=== PATIENT | male | born 1965 | race Caucasian/White ===

== ENCOUNTER → 2017-02-13 12:50 | Outpatient (CLI) | payer MEDICAID ==
[2015-12-11 16:14] VITALS: BMI 24.2
[~2017-02-13 12:50] MED LIST: BUSPAR10 MG PO; CELEXA20 MG PO; DILAUDID2 MG PO; FLOMAX0.4 MG PO; HYDROCODON-ACE1 EAC7 PO; LOVASTATIN10 MG PO; MIRALAX17 GM PO; PEPCID40 MG PO; PREVACID30 MG PO; TRAZODONE HCL50 MG PO
[2017-03-11 07:56] VITALS: BMI 27.1
== END | disposition home or self-care (01) ==
LOC: D.CN 11:00 → D.MRI 12:50
DX: G44.029 Chronic cluster headache, not intractable (principal); S06.0X0D Concussion without loss of consciousness, subsequent encounter; X58.XXXD Exposure to other specified factors, subsequent encounter; F10.10 Alcohol abuse, uncomplicated

== ENCOUNTER → 2017-02-25 09:40 | Outpatient (CLI) | payer MEDICAID ==
[2015-12-11 16:14] VITALS: BMI 24.2
--- NOTE | 2017-03-02 06:53 | EEG ---
PATIENT:ADIN CHONG DATE OF SERVICE: 02/25/17 MEDICAL RECORD: [id number] DATE OF : 69 LOCATION: [facility] ADMISSION DATE: 02/25/17 REFERRING PHYSICIAN: INTERPRETING PHYSICIAN: ALEXYS BONE MD DATE OF SERVICE: 02/25/2017 Referred by Alexys Bone MD as an outpatient. ELECTROENCEPHALOGRAM NUMBER: [id number]. DATE OF EXAMINATION: 02/25/2017 at 10:40 a.m. TECHNICAL DATA: This electroencephalographic recording consisted of approximately 20 minutes of data collection utilizing the international 10/20 system of electrode placement and both referential and non-referential montages. Sixteen channels of electrocerebral recording are accompanied by a 17th channel dedicated to the electrocardiographic rhythm and 2 channels of electromyographic recording. Recording is performed in the awake and drowsy states utilizing activation by hyperventilation and photic stimulation. ELECTROENCEPHALOGRAPHIC DATA: The awake state comprises approximately 70% of the recorded electrocerebral activity. Electromyographic artifact is prominent and rapid eye movements are seen. The posterior dominant background consists of a well-developed, symmetric, semi-rhythmic, waxing and waning alpha activity of 9-10 Hz, which is suppressed by eye opening. The drowsy state comprises the remaining portion of the recorded electrocerebral activity. Electromyographic artifact is moderately diminished. Rapid eye movements are not seen. The posterior dominant background is at times relatively suppressed. No abnormal or focal slowing is identified. No epileptiform discharges are seen. Hyperventilation and photic stimulation induced no abnormal change in the recorded electrocerebral activity. INTERPRETATION: Normal (awake and drowsy). This is a normal electroencephalographic recording. TRANSINT:[id number] Voice Confirmation ID: [id number] DOCUMENT ID: [id number] ALEXYS BONE MD at 0653 CC: [id number] DICTATION DATE: 02/26/17 0828 QA ANALYST: 02/26/17 1216 DEP CLI 02/25/17 [place] [id number]
[2017-03-11 07:56] VITALS: BMI 27.1
== END | disposition home or self-care (01) ==
LOC: D.CN 02-13 11:00
DX: G44.029 Chronic cluster headache, not intractable (principal); S06.0X0D Concussion without loss of consciousness, subsequent encounter; F10.10 Alcohol abuse, uncomplicated

== ENCOUNTER 2017-03-11 07:17 | Day surgery (SDC) | payer MEDICAID ==
[~2017-03-11] VITALS: Ht 167.6 cm; Wt 76.2 kg
[~2017-03-11 07:17] MED LIST changes: -HYDROCODON-ACE1 EAC7 PO; -MIRALAX17 GM PO
[2017-03-11 07:56] VITALS: BP 120/75; Ht 167.6 cm; Wt 76.2 kg
[2017-03-11] MEDS ORDERED: MIRALAX17 GM PO (10:36)
[2017-03-11] MEDS ORDERED: HYDROCODON-ACE1 EAC7 PO (10:36)
--- NOTE | 2017-03-11 12:56 | OP ---
PATIENT NAME: ADIN CHONG MEDICAL RECORD: [id number] :69 LOCATION:.[facility] ADMISSION DATE: SURGEON: FLORENCE ZAVALA MD DATE OF OPERATION: 03/11/2017 PREOPERATIVE DIAGNOSES: 1. Bleeding hemorrhoids. 2. Nicotine dependence. 3. Chronic obstructive pulmonary disease. POSTOPERATIVE DIAGNOSIS: Grade III internal hemorrhoids. PROCEDURES PERFORMED: 1. Rectal examination under anesthesia. 2. Internal hemorrhoid banding times 3. ANESTHESIA: General. COMPLICATIONS: None. SPECIMENS: None. Case was contaminated. ESTIMATED BLOOD LOSS: Minimal. OPERATIVE COURSE: After consent was obtained, the patient was taken to the operating room and placed in the supine position on the operating table. Next, general anesthesia was given. Thereafter, a timeout was taken to confirm the correct patient and procedure. The patient was placed in the stirrups. The perineum and rectum were prepped and draped in typical sterile fashion. A 30 cc of local anesthetic were used as a perineal block. Digital rectal exam was performed. The patient had grade III internal hemorrhoids at both at the right anterior, right posterior, and left lateral positions. Internal hemorrhoid banding was performed at all 3 hemorrhoid columns. At the end of the case, the rectum was packed with Gelfoam and Americaine. All needle and instrument counts were correct. The patient tolerated the procedure well. Postoperatively, he was transferred to the recovery room in satisfactory condition. TRANSINT:[id number] Voice Confirmation ID: [id number] DOCUMENT ID: [id number] FLORENCE ZAVALA MD at 1256 CC: [id number] DICTATION DATE: 03/11/17 1041 ROVING WEIGHT GAUGER: 03/11/17 1221 REG [facility] [address] [place] [id number]
--- NOTE | 2017-03-11 16:20 | NUR ---
1200 IV DC WITH CATHER TIP INTACT
--- NOTE | 2017-03-11 16:24 | NUR ---
[address] ZAVALA TO COME CHANGE RX
== END 2017-03-11 13:00 | disposition home or self-care (01) ==
LOC: D.OPS 07:17 → D.PAN 09:15 → D.OPS 09:15
DX: K64.2 Third degree hemorrhoids (principal); F17.200 Nicotine dependence, unspecified, uncomplicated; J44.9 Chronic obstructive pulmonary disease, unspecified; K21.9 Gastro-esophageal reflux disease without esophagitis; Z01.812 Encounter for preprocedural laboratory examination

== ENCOUNTER 2018-04-17 16:24 | Observation (INO) | payer SELFPAY ==
[~2018-04-17] VITALS: Ht 167.6 cm; Wt 77.3 kg
[~2018-04-17 16:24] MED LIST changes: +HYDROCODON-ACE1 EAC7 PO; +MIRALAX17 GM PO; +TRAZODONE HCL100 MG PO; -TRAZODONE HCL50 MG PO
[2018-04-17 18:01] LABS: ALBUMIN 3.7 g/dL (3.4-5.0); ALKALINE PHOSPHATASE 115 U/L (46-116); ALT (SGPT) 24 U/L (10-68); BASOPHILS 0.2 % (0-2); CALC OSMOLALITY 268 mosm/kg (275-300); CARBON DIOXIDE 24.4 mmol/L (21.0-32.0); CHLORIDE - SERUM 100 mmol/L (98-107); CREATININE - SERUM 0.9 mg/dL (0.6-1.3); EOSINOPHILS 0.6 % (0-7); GLUCOSE 92 mg/dL (74-106); HEMOGLOBIN 13.7 g/dL (13.5-17.5); IMMATURE GRANULOCYTES 0.2 % (0-5); LYMPHOCYTES 18.5 % (15-50); MCH 30.5 pg (26.0-34.0); MCHC 35.1 g/dL (31.0-37.0); MCV 86.9 fL (80.0-100.0); MEAN PLATELET VOLUME 9.1 fL (7.4-10.4); MONOCYTES 6.3 % (2-11); NEUTROPHILS 74.2 % (40-80); PLATELET COUNT 289 10x3/uL (130-400); POTASSIUM - SERUM 3.7 mmol/L (3.5-5.1); PROTEIN - SERUM 7.9 g/dL (6.4-8.2); RBC 4.49 10x6/uL (4.20-6.10); RDW 13.3 % (11.5-14.5); SODIUM 135 mmol/L (136-145); UREA NITROGEN 10 mg/dL (7-18); WBC 10.2 10x3/uL (4.8-10.8); eGFR NON AFRICAN AMERICAN > 90 mL/min (90-120)
[2018-04-17 18:05] LABS: AMYLASE - SERUM 48 U/L (25-115); LIPASE 120 U/L (73-393)
[2018-04-17 18:07] LABS: TROPONIN-I < 0.017 ng/mL (0.000-0.060)
[2018-04-17 19:07] LABS: APPEARANCE CLEAR (CLEAR); BILIRUBIN NEGATIVE (NEGATIVE); COLOR YELLOW (YELLOW); GLUCOSE NEGATIVE (NEGATIVE); KETONE NEGATIVE (NEGATIVE); NITRITE NEGATIVE (NEGATIVE); PROTEIN NEGATIVE (NEGATIVE); UROBILINOGEN NORMAL (NORMAL)
[2018-04-17 19:09] LABS: WHITE CELLS - URINE OCC /hpf (0-5)
[2018-04-17 19:10] LABS: BACTERIA FEW /hpf (NONE SEEN); EPITHELIAL CELLS OCC /hpf (0-5); HYALINE CAST OCC /lpf (NONE SEEN); MUCUS <1+ /lpf (NONE SEEN)
[2018-04-17] MEDS ORDERED: CALAN SR240 MG PO (23:32)
[2018-04-17] MEDS ORDERED: CARAFATE1 G PO (23:32)
[2018-04-18 00:21] VITALS: BP 121/84
[2018-04-18 02:45] VITALS: BP 121/84; BMI 27.5
[2018-04-18 04:11] VITALS: BP 112/74
[2018-04-18 08:33] LABS: BASOPHILS 0.2 % (0-2); EOSINOPHILS 1.8 % (0-7); HEMATOCRIT 36.3 % (42.0-54.0); HEMOGLOBIN 12.5 g/dL (13.5-17.5); IMMATURE GRANULOCYTES 0.1 % (0-5); LYMPHOCYTES 20.2 % (15-50); MCH 30.1 pg (26.0-34.0); MCHC 34.4 g/dL (31.0-37.0); MCV 87.5 fL (80.0-100.0); MONOCYTES 6.9 % (2-11); NEUTROPHILS 70.8 % (40-80); PLATELET COUNT 261 10x3/uL (130-400); RBC 4.15 10x6/uL (4.20-6.10); RDW 13.5 % (11.5-14.5); WBC 9.4 10x3/uL (4.8-10.8)
[2018-04-18 09:04] LABS: ALBUMIN 3.2 g/dL (3.4-5.0); ALKALINE PHOSPHATASE 103 U/L (46-116); ALT (SGPT) 22 U/L (10-68); BILIRUBIN - TOTAL 0.39 mg/dL (0.2-1.3); CALC OSMOLALITY 279 mosm/kg (275-300); CALCIUM 8.7 mg/dL (8.5-10.1); CARBON DIOXIDE 25.9 mmol/L (21.0-32.0); CHLORIDE - SERUM 104 mmol/L (98-107); CKMB 2.1 U/L (0.0-3.6); CREATINE KINASE 128 UL (21-232); CREATININE - SERUM 0.8 mg/dL (0.6-1.3); GLUCOSE 127 mg/dL (74-106); POTASSIUM - SERUM 3.8 mmol/L (3.5-5.1); SODIUM 140 mmol/L (136-145); TROPONIN-I < 0.017 ng/mL (0.000-0.060); UREA NITROGEN 11 mg/dL (7-18); eGFR NON AFRICAN AMERICAN > 90 mL/min (90-120)
[2018-04-18 09:09] VITALS: BP 116/70
[2018-04-18 11:22] VITALS: Ht 167.6 cm; Wt 77.3 kg
== END 2018-04-18 13:41 | disposition home or self-care (01) ==
LOC: D.ER 16:24 → D.M3 17:58 → D.EDHOLD 17:58 → OBSVTIME 17:58 → D.M3 18:58
PROVIDERS: Family Medicine; ADMIT Internal Medicine Nephrology
DX: T14.8XXA Other injury of unspecified body region, initial encounter (principal); V59.88XA Occupant (driver) (passenger) of pick-up truck or van injured in other specified transport accidents, initial encounter; I10 Essential (primary) hypertension; F17.213 Nicotine dependence, cigarettes, with withdrawal; J44.9 Chronic obstructive pulmonary disease, unspecified

== ENCOUNTER 2019-04-09 16:50 | Emergency (ER) | payer MEDICAID ==
[~2019-04-09] VITALS: Ht 167.6 cm; Wt 75.0 kg
[~2019-04-09 16:50] MED LIST changes: +CALAN SR240 MG PO; +CARAFATE1 G PO
[2019-04-09 17:12] VITALS: Ht 167.6 cm; Wt 75.0 kg
[2019-04-09 17:38] LABS: UDS - AMPHET NEGATIVE QUAL (NEGATIVE); UDS - BARB POSITIVE QUAL (NEGATIVE); UDS - BENZO NEGATIVE QUAL (NEGATIVE); UDS - COCAINE NEGATIVE QUAL (NEGATIVE); UDS - OPIATE NEGATIVE QUAL (NEGATIVE); UDS - PCP NEGATIVE QUAL (NEGATIVE); UDS - THC POSITIVE QUAL (NEGATIVE)
[2019-04-09 17:51] LABS: APPEARANCE CLEAR (CLEAR); BILIRUBIN NEGATIVE (NEGATIVE); COLOR STRAW (YELLOW); GLUCOSE NEGATIVE (NEGATIVE); KETONE NEGATIVE (NEGATIVE); NITRITE NEGATIVE (NEGATIVE); PROTEIN NEGATIVE (NEGATIVE); UROBILINOGEN NORMAL (NORMAL)
[2019-04-09 18:23] LABS: BASOPHILS 0.4 % (0-2); EOSINOPHILS 2.4 % (0-7); IMMATURE GRANULOCYTES 0.2 % (0-5); MCH 30.7 pg (26.0-34.0); MCHC 33.3 g/dL (31.0-37.0); MCV 92.1 fL (80.0-100.0); MEAN PLATELET VOLUME 8.7 fL (7.4-10.4); MONOCYTES 7.3 % (2-11); NEUTROPHILS 55.7 % (40-80); PLATELET COUNT 260 10x3/uL (130-400); RBC 3.91 10x6/uL (4.20-6.10); RDW 13.6 % (11.5-14.5); WBC 8.4 10x3/uL (4.8-10.8)
[2019-04-09 18:36] LABS: CALC OSMOLALITY 281 mosm/kg (275-300); CALCIUM 8.4 mg/dL (8.5-10.1); CHLORIDE - SERUM 106 mmol/L (98-107); GLUCOSE 93 mg/dL (74-106); POTASSIUM - SERUM 4.2 mmol/L (3.5-5.1); SODIUM 141 mmol/L (136-145); UREA NITROGEN 14 mg/dL (7-18); eGFR NON AFRICAN AMERICAN 84 mL/min (90-120)
[2019-04-09 18:42] LABS: ALBUMIN 3.7 g/dL (3.4-5.0); ALKALINE PHOSPHATASE 97 U/L (46-116); ALT (SGPT) 20 U/L (10-68); BILIRUBIN - TOTAL 0.18 mg/dL (0.2-1.3); MAGNESIUM - SERUM 2.1 mg/dL (1.8-2.4); PROTEIN - SERUM 7.2 g/dL (6.4-8.2)
--- NOTE | 2019-04-09 19:20 | NUR ---
DR. STEVENS NOTIFIED AND SITTER ORDERED. SITTER AT BEDSIDE. NOTIFIED CHARGE NURSE AND ATTENDING IN REGARDS TO ASSESSMENT FINDINGS. RESOURCES GIVEN TO PT AND SAFETY PLAN INITIATED.
--- NOTE | 2019-04-09 21:22 | NUR ---
PT ACCEPTED TO [facility]. REPORT TO TATI GALVAN.
[2019-04-09 21:30] VITALS: BP 138/77
== END 2019-04-09 21:31 ==
LOC: OBSVTIME → D.ER 16:50 → D.ICU 19:41 → OBSVTIME 19:41
PROVIDERS: Family Medicine
DX: R45.851 Suicidal ideations (principal); F32.9 Major depressive disorder, single episode, unspecified; T43.212A Poisoning by selective serotonin and norepinephrine reuptake inhibitors, intentional self-harm, initial encounter; T42.8X2A Poisoning by antiparkinsonism drugs and other central muscle-tone depressants, intentional self-harm, initial encounter; J44.9 Chronic obstructive pulmonary disease, unspecified; K21.9 Gastro-esophageal reflux disease without esophagitis

== ENCOUNTER 2019-04-27 08:00 | Outpatient (CLI) | payer OTHER ==
[~2019-04-27] VITALS: Ht 170.2 cm; Wt 75.7 kg
[2019-04-27] MEDS ORDERED: BUTALB-APAP-CA1 EACH (08:37)
[2019-04-27] MEDS ORDERED: LISINOPRIL10 MG PO (08:37)
[2019-04-27] MEDS ORDERED: BENTYL10 MG (08:39)
[2019-04-27] MEDS ORDERED: ZANAFLEX4 MG (08:40)
[2019-04-27] MEDS ORDERED: VIMOVO 500-201 EACH (08:41)
[2019-04-27 09:20] LABS: HEMATOCRIT 39.4 % (42.0-54.0); HEMOGLOBIN 13.3 g/dL (13.5-17.5); MCH 30.6 pg (26.0-34.0); MCHC 33.8 g/dL (31.0-37.0); MCV 90.8 fL (80.0-100.0); MEAN PLATELET VOLUME 8.8 fL (7.4-10.4); RBC 4.34 10x6/uL (4.20-6.10); RDW 13.7 % (11.5-14.5)
[2019-06-01] MEDS ORDERED: PEPCID AC20 MG PO (14:28)
[2019-06-04 06:59] VITALS: Ht 170.2 cm; Wt 75.7 kg
== END 2019-04-27 08:01 | disposition home or self-care (01) ==
LOC: D.OPS 08:00 → D.PAN 04-28 07:30 → EDSTATUS 04-28 07:30
PROVIDERS: Anesthesiology; ATTEND Urology
DX: N35.919 Unspecified urethral stricture, male, unspecified site (principal)

== ENCOUNTER 2019-06-04 05:59 | Day surgery (SDC) | payer OTHER ==
[~2019-06-04] VITALS: Ht 348 cm; Wt 77.1 kg
[~2019-06-04 05:59] MED LIST changes: +BENTYL10 MG; +BUTALB-APAP-CA1 EACH; +LISINOPRIL10 MG PO; +PEPCID AC20 MG PO; +VIMOVO 500-201 EACH; +ZANAFLEX4 MG
[2019-06-04 06:25] LABS: HEMATOCRIT 39.6 % (42.0-54.0); HEMOGLOBIN 13.5 g/dL (13.5-17.5); MCH 30.5 pg (26.0-34.0); MCHC 34.1 g/dL (31.0-37.0); MCV 89.6 fL (80.0-100.0); MEAN PLATELET VOLUME 8.8 fL (7.4-10.4); RBC 4.42 10x6/uL (4.20-6.10); RDW 13.5 % (11.5-14.5); WBC 11.2 10x3/uL (4.8-10.8)
[2019-06-04] MEDS ORDERED: BUTALB-APAP-CA1 EACH PO (06:40)
[2019-06-04 06:59] VITALS: BP 119/76; Ht 348 cm; Wt 77.1 kg
--- NOTE | 2019-06-04 11:57 | OP ---
PATIENT NAME: ADIN CHONG MEDICAL RECORD: [id number] :69 LOCATION:[facility] ADMISSION DATE: SURGEON: BRYAN HAMMER MD DATE OF OPERATION: 06/04/2019 SURGEON: Bryan Hammer MD ANESTHESIA: TIVA by Erika Cadet CRNA DIAGNOSIS: Bladder neck contracture. PROCEDURE: Cystoscopy. FINDINGS: No urethral strictures. Tight bladder neck. Single ureteral orifices bilaterally with no bladder tumors. ESTIMATED BLOOD LOSS: None. CLINICAL HISTORY: This is a 53-year-old male who complains of nocturia times 3-4 with daytime urinary frequency every 1 hour. He has urge urinary incontinence, hesitancy in getting a stream started and a slow urinary flow. He had urethritis in 1988 and this was treated with antibiotics. Also, as a child, he used to play with injecting water into his urethra using an ear syringe. Therefore, I am performing cystoscopy today to check for a urethral stricture. If one is found, we would incise it with the DVIU. He was given Levaquin IV production line worker to the OR. DESCRIPTION OF PROCEDURE: The patient was given IV sedation. He was placed into lithotomy position and prepped and draped. A 17-Setswana cystoscope with 30-degree lens was used for visualization. No urethral strictures were found. The site of obstruction was the bladder neck. Going into the bladder, no bladder tumors were seen. The bladder was emptied through the scope sheath and the scope was removed. I will see him in followup next week to review the results with him and offer the UroLift procedure around the bladder neck to him. TRANSINT:[id number] Voice Confirmation ID: [id number] DOCUMENT ID: [id number] BRYAN HAMMER MD at 1157 CC: [id number] DICTATION DATE: 06/04/19 0853 CONTINUOUS WAVE OPERATOR: 06/04/19 1041 [facility] 06/04/19 [place] [id number] [place] [address]
== END 2019-06-04 11:00 | disposition home or self-care (01) ==
LOC: D.OPS 05:59 → D.PAN 07:30 → D.OPS 07:30
PROVIDERS: Anesthesiology; ATTEND Urology
DX: N32.0 Bladder-neck obstruction (principal); N35.919 Unspecified urethral stricture, male, unspecified site

== ENCOUNTER 2019-06-30 06:20 | Day surgery (SDC) | payer OTHER ==
[2019-06-29 08:51] LABS: HEMATOCRIT 37.2 % (42.0-54.0); HEMOGLOBIN 12.7 g/dL (13.5-17.5); MCH 30.8 pg (26.0-34.0); MCHC 34.1 g/dL (31.0-37.0); MCV 90.1 fL (80.0-100.0); MEAN PLATELET VOLUME 8.9 fL (7.4-10.4); RBC 4.13 10x6/uL (4.20-6.10); RDW 13.3 % (11.5-14.5); WBC 9.4 10x3/uL (4.8-10.8)
[~2019-06-30] VITALS: Ht 170.2 cm; Wt 88.9 kg
[~2019-06-30 06:20] MED LIST changes: +BUTALB-APAP-CA1 EACH PO; +VISTARIL25 MG PO
--- NOTE | 2019-06-30 06:51 | NUR ---
REFUSES BH SCREENING. STATES HAD ONE 4 WEEKS AGO AND NOTHING HAS CHANGED. STATES I HAVE NO THOUGHTS OF SUICIDE.
[2019-06-30 06:53] VITALS: BP 110/67; Ht 170.2 cm; Wt 88.9 kg
--- NOTE | 2019-06-30 11:47 | OP ---
PATIENT NAME: ADIN CHONG MEDICAL RECORD: [id number] :69 LOCATION:[facility] ADMISSION DATE: SURGEON: BRYAN HAMMER MD DATE OF OPERATION: 06/30/2019 SURGEON: Bryan Hammer MD ANESTHESIA: TIVA by Alexys Hernandez MD DIAGNOSES: Obstructive benign prostatic hyperplasia with bladder neck stenosis. PROCEDURE: UroLift times 4 in box configuration around the bladder neck. FINDINGS: Tight bladder neck, single ureteral orifices bilaterally. No bladder tumors. ESTIMATED BLOOD LOSS: None. CLINICAL HISTORY: This is a 53-year-old male with obstructive voiding symptoms. On cystoscopy, he was found that he had a tight bladder neck. The lateral lobes are not obstructive and there are no urethral strictures. IPSS score is 26. Quality of life score is 6. He comes to have the UroLift procedure done. HE IS ALLERGIC TO HYDROCODONE. He was given ampicillin and sulbactam 3 grams IV food consultant to the OR. DESCRIPTION OF PROCEDURE: The patient was given IV sedation. He snores heavily and he probably has sleep apnea. A nasal trumpet had to be introduced to prevent obstruction of the airway. The UroLift scope was then introduced with the patient in lithotomy position. He has the bladder neck stenosis as I mentioned earlier. A 1.5 cm distal to the bladder neck, we placed 1 unit on each side at the anterolateral sulcus. Then, 1 unit on each side was placed at the mid prostatic urethral level. This is mid prostate in terms of anterior and posterior direction. This resulted in a nice open bladder neck. The bladder was left partly filled with irrigation fluid. He will have a voiding trial today. If he cannot void, a Pierce catheter will have to be inserted. Otherwise, I will see him in followup in 1 months' time. TRANSINT:[id number] Voice Confirmation ID: [id number] DOCUMENT ID: [id number] BRYAN HAMMER MD at 1147 CC: [id number] DICTATION DATE: 06/30/19 0949 SERVICE TEAM LEADER: 06/30/19 1112 REG [facility] [address] [place] [address]
--- NOTE | 2019-06-30 14:05 | NUR ---
1105 IV DC'ED WITH CATH INTACT. 525ML LTC. PRESSURE TO SITE. DRESSING. A,. SHABBIR HellerNTr 1120 DRESSED. AWAKE & ALERT. GIVEN DISCHARGE INFORMATION INCLUDING: MED REC, RTC APPT., [facility] D/C INSTRUCTIONS & POST UROLIFT D/C INSTRUCTIONS. PT VOICED UNDERSTANDING. TO PRIVATE CAR PER STAFF. HOME WITH SISTER, CARA HERRERA. Ayse SHEA R.N.
== END 2019-06-30 11:20 | disposition home or self-care (01) ==
LOC: D.OPS 06:20 → D.PAN 08:15 → D.OPS 08:15
PROVIDERS: Anesthesiology; ATTEND Urology
DX: N40.1 Benign prostatic hyperplasia with lower urinary tract symptoms (principal); N13.8 Other obstructive and reflux uropathy; K21.9 Gastro-esophageal reflux disease without esophagitis; J44.9 Chronic obstructive pulmonary disease, unspecified; F17.200 Nicotine dependence, unspecified, uncomplicated